=== PATIENT | female | born 1990 | race Two or more races ===

== ENCOUNTER 2018-07-13 08:08 | Inpatient (IN) | payer OTHER ==
[~2018-07-13] VITALS: Ht 157.5 cm; Wt 72.2 kg
[2018-07-13] MEDS ORDERED: RINGERS SOLUTION,LACTATED 1,000 ML IV PRN (08:21)
[2018-07-13] MEDS ORDERED: RINGERS SOLUTION,LACTATED 1,000 ML IV SCH (08:21)
[2018-07-13] MEDS ORDERED: OXYTOCIN 30 UNITS/LACT RINGERS 500 ML IV ONE (08:21)
[2018-07-13] MEDS ORDERED: CITRIC ACID/SODIUM CITRATE 30 ML SOLUTION UDCUP PO PRN (08:30)
[2018-07-13] MEDS ORDERED: METOCLOPRAMIDE HCL 5 MG/ML 2 ML VIAL IVP PRN (08:30)
[2018-07-13] MEDS ORDERED: FentaNYL CITRATE-PF 100 MCG/2 ML VIAL IVP PRN (08:30)
[2018-07-13] MEDS ORDERED: METHYLERGONOVINE MALEATE 0.2 MG/ML VIAL IM PRN (08:30)
[2018-07-13] MEDS ORDERED: LIDOCAINE/PF 1% 30 ML VIAL INJ PRN (08:30)
[2018-07-13] MEDS ORDERED: PREN1TAB80 PO (08:34)
[2018-07-13] MEDS ORDERED: AMOX250T PO ×2 (08:34)
[2018-07-13] MEDS ORDERED: [UNRECOGNIZED DRUG - CODE] IM (08:34)
[2018-07-13 08:35] VITALS: BP 145/65
[2018-07-13 09:17] LABS: BASOPHILS % (AUTO) 0.4 % (0.0-2.0); EOSINOPHILS % (AUTO) 0.3 % (1.0-6.0); HEMATOCRIT 38.7 % (36-46); HEMOGLOBIN 13.4 g/dL (12.0-16.0); LYMPHOCYTES # (AUTO) 1.6 K/uL (1.0-4.8); LYMPHOCYTES % (AUTO) 10.5 % (22.0-44.0); MEAN CORPUSCULAR HEMOGLOBIN 30.8 pg (26.0-34.0); MEAN CORPUSCULAR HGB CONC 34.7 G/dL (31.0-37.0); MEAN CORPUSCULAR VOLUME 89 fL (80-100); MONOCYTES # (AUTO) 0.5 K/uL (0.1-1.0); MONOCYTES % (AUTO) 3.2 % (2.0-9.0); PLATELET COUNT (AUTO) 250 K/uL (150-450); RED BLOOD CELL COUNT(AUTO) 4.35 MIL/uL (4.00-5.20); RED CELL DISTRIBUTION WIDTH 13.5 % (11.5-14.5)
[2018-07-13] MEDS ORDERED: RINGERS SOLUTION,LACTATED 1,000 ML IV ONE (09:33)
[2018-07-13 09:37] LABS: NEUTROPHILS % (AUTO) 85.6 % (40.0-70.0)
[2018-07-13] MEDS ORDERED: MEASLES/MUMPS/RUBELLA VACCINE, LIVE 0.5 ML/VIAL SQ ONE (09:45)
[2018-07-13] MEDS ORDERED: LANOLIN 7 GM OINTMENT TP PRN (09:45)
[2018-07-13] MEDS ORDERED: OxyCODONE HCL/ACETAMINOPHEN 5-325 MG TABLET PO PRN ×2 (09:45)
[2018-07-13] MEDS ORDERED: BENZOCAINE 20%/MENTHOL 56 GM SPRAY CANISTER TP PRN (09:45)
[2018-07-13] MEDS ORDERED: GLYCERIN/WITCH HAZEL LEAF 40 PADS JAR TP PRN (09:45)
[2018-07-13] MEDS ORDERED: IBUPROFEN 600 MG TABLET PO PRN (09:45)
[2018-07-13] MEDS ORDERED: OXYGEN THERAPY IH SCH (20:00)
[2018-07-13 20:39] VITALS: BP 121/73
[2018-07-13] MEDS: MAGNESIUM HYDROXIDE SUSPENSION 30 ML UDCUP PO SCH (23:20)
[2018-07-14] MEDS: MAGNESIUM HYDROXIDE SUSPENSION 30 ML UDCUP PO SCH (08:40)
[2018-07-14] MEDS ORDERED: DSS100 PO (09:36)
[2018-07-14] MEDS ORDERED: IBUP-2071 PO (09:36)
== END 2018-07-14 13:00 | disposition home or self-care (01) | DRG 807 ==
LOC: 4S 08:08 → OBSVTOIN 08:08
PROVIDERS: ADMIT Obstetrics & Gynecology; ATTEND Obstetrics & Gynecology
PROC: 0HQ9XZZ Repair Perineum Skin, External Approach (ICD-10-PCS; principal; 2018-07-13)
PROC: 10E0XZZ Delivery of Products of Conception, External Approach (ICD-10-PCS; 2018-07-13)
DX: O70.0 First degree perineal laceration during delivery (principal); Z37.0 Single live birth; Z3A.37 37 weeks gestation of pregnancy
CPT/HCPCS: 86850; 86900; 86901; J2590; J3490